=== PATIENT | female | born 1975 | race African-American/Black ===

== ENCOUNTER 2016-04-20 08:36 | Emergency (ER) | payer SELFPAY ==
[2016-04-20 08:46] VITALS: TEMP 97.9; BMI 21.9
[2016-04-20] MEDS ORDERED: PREDNISONE 20 MG TAB PO ONE (09:07)
[2016-04-20] MEDS ORDERED: ALBUTEROL 0.083% 3 ML NEB NEB ONE (09:07)
--- NOTE | 2016-04-20 09:07 | EDPRACDOC ---
- General Information Chief Complaint: Eye Problems Stated Complaint: EYE SWOLLEN Time Seen by Provider: 04/20/16 08:55 Information Source: Patient Mode Of Arrival: Ambulance Home Medications: Home Medications Azithromycin [Zithromax] 0 mg PO DAILY #6 tablet 01/26/15 Prednisone [Deltasone] 20 mg PO BID 5 Days 01/26/15 Allergies/Adverse Reactions: Allergies Allergy/AdvReac Type Severity Reaction Status Date / Time No Known Allergies Allergy Verified 04/20/16 08:46 - History of Present Illness Onset: YESTERDAY HPI: LEFT UPPER EYELID SWELLING, PAIN. THINKS SOMETHING BUT HER. PRESENT FOR 2 DAYS. ITCHING. HEADACHE. BOYFRIEND NOT GETTING BITTEN. OTHER BUG BITE ON ARM. ED Past Medical History - History Reviewed Yes Nurses notes reviewed and agree except as marked - Patient Medical History Respiratory History: Reports: Asthma Psychological History: Reports: Depression, Anxiety, Substance Use Disorder ( Alcohol and Cannabis) - Social Medical History Smoking Status: Heavy tobacco smoker (5 or more cigarettes/day or daily pipe/ cigar) Social History: Reports: Substance Use Disorder (Alcohol and Cannabis) EDM Review of Systems - Review of Systems ROS Negative Except as Marked: Yes All systems reviewed and were negative except as marked Constitutional: No Symptoms Reported Respiratory: No Symptoms Reported Cardiovascular: No Symptoms Reported Gastrointestinal: Diarrhea Musculoskeletal: No Symptoms Reported Integumentary: No Symptoms Reported - Physical Exam Constitutional: Alert (Awake), No apparent distress Oriented to: Time, Person, Place Last recorded Vital Signs: Last Vital Signs Temp 97.9 F 04/20/16 08:43 Pulse 102 04/20/16 08:43 Resp 18 04/20/16 08:43 BP 160/57 L 04/20/16 08:43 Pulse Ox 95 04/20/16 08:43 Oxygen Pulse Oxygen Saturation 95 O2 Device Room Air Oxygen Flow Rate Fraction of Inspired Oxygen ( FIO2) - HEENT Head: Normal ( normocephalic) Eye Exam: Normal (PERRL, EOMI, Sclera white) Oropharynx: Normal (Pharynx:Moist without exudate,Gums-no swelling) Nose: No Symptoms Reported (septum midline) Neck: Normal (FROM, trachea at midline) - Respiratory/Cardiovascular Respiratory: Wheezes (B/L) Cardiovascular: Normal (RRR without murmur, gallop or rub) - GI Auscultation: Normal (NABS) Palpation: Normal (Soft,No rebound or guarding, non distended) Tenderness: Non tender Smith's Sign: Negative - Musculoskeletal Back: Normal (Non-Tender) Extremities: Normal (Normal tone, Pulses 2+ No cyanosis or edema, FROM) - Integumentary Skin: Normal, Warm, Dry Lymphatics: Normal (no adenopathy) - Neurologic Memory Impaired: Normal Motor Function: Normal (Normal tone, Pulses 2+ No cyanosis or edema, FROM) Cranial Nerve: Normal (CN II-X11 intact sensation, strength 5/5) Cerebellar: Normal Mood Description: Normal Perception: Normal ED Eye Problem Exam Eye Exam: right eye: normal inspection, left eye: other (LEFT UPPER EYELID SWELLING. ), bilateral eye: PERRL, EOMI Decision Time to Discharge: 09:09 - Departure Yes I personally saw and evaluated the patient. Disposition: Home Condition: Stable Final Diagnosis: Periorbital edema of left eye, COPD with acute exacerbation Instructions: Insect Bite or Sting (ED) Education/Counseling Given To: Patient Education/Counseling Given Regarding: Diagnosis Referrals: None,No Provider [Primary Care Provider] - One Week
[2016-04-20 09:52] VITALS: BP 116/66; PULSE 96
== END 2016-04-20 09:52 | disposition home or self-care (01) ==
LOC: ED 08:36
DX: J44.1 Chronic obstructive pulmonary disease with (acute) exacerbation (principal); H05.222 Edema of left orbit
CPT/HCPCS: 94640; 99282; J3490